=== PATIENT | male | born 1990 | race Caucasian/White ===

== ENCOUNTER → 2019-01-09 | Outpatient (REF) | payer OTHER | LOC: M SFHCLERA 12:10 | PROVIDERS: ATTEND Nurse Practitioner Family | DX: J02.9 Acute pharyngitis, unspecified (principal) ==

== ENCOUNTER 2019-12-11 18:17 | Inpatient (IN) | payer OTHER ==
[~2019-12-11] VITALS: Ht 182.9 cm; Wt 118.3 kg
[2019-12-11] MEDS ORDERED: ZOLO100T PO (18:56)
[2019-12-11] MEDS ORDERED: WELLTAB40 PO (18:56)
[2019-12-11] MEDS ORDERED: DOXE75CA2 PO (18:56)
[2019-12-11] MEDS ORDERED: PROP10TA56 PO (20:36)
[2019-12-11] MEDS ORDERED: FLOM0.4C39 PO (20:36)
[2019-12-12] MEDS ORDERED: ADDE20CA3 PO (01:03)
[2019-12-12] MEDS ORDERED: MOBI4TAB PO (01:03)
[2019-12-12] MEDS ORDERED: FLOM0.4C39 PO (01:03)
[2019-12-12] MEDS ORDERED: DOXE25CA PO (01:03)
[2019-12-12] MEDS ORDERED: ACETAMINOPHEN TAB 650MG DOSE (2X325MG) PO PRN (02:00)
[2019-12-12] MEDS ORDERED: MOM 30ML SUSPENSION UDC PO PRN (02:00)
[2019-12-12] MEDS ORDERED: MAALOX 30 ML SUSP *UDC PO PRN (02:00)
[2019-12-12 05:30] VITALS: BP 145/96
[2019-12-12] MEDS ORDERED: MELO7.5T35 PO (08:00)
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
--- NOTE | 2019-12-12 10:41 | HPEPDOC ---
General Date of Admission Dec 12, 2019 at 02:00 Date of Service: Dec 12, 2019 Chief Complaint The patient is a 29-year-old male admitted with a reason for visit of Unspecified Depressive D/O. Source: Patient Exam Limitations: No limitations Timing/Duration: Other (not applicable) Severity: Other (not applicable) Associated Symptoms: Other (not applicable) History of Present Illness 29 years old white male with past medical history of major depressive disorder has been admitted to inpatient mental health unit with suicidal ideations. Patient denies any medical complaints including chest pain, shortness of breath, nausea, vomiting, abdominal pain, syncope, etc. Home Medications Scheduled Bupropion HCl (Wellbutrin Xl) 300 Mg Tab.er.24h, 300 MG PO DAILY, (Reported) Doxepin HCl (Doxepin HCl) 25 Mg Capsule, 75 MG PO QHS, (Reported) Meloxicam (Meloxicam) 7.5 Mg Tablet, 7.5 MG PO DAILY for . , (Reported) Sertraline Hcl (Zoloft) 100 Mg Tablet, 100 MG PO DAILY, (Reported) Tamsulosin HCl (Flomax) 0.4 Mg Capsule, 0.4 MG PO QHS, (Reported) Scheduled PRN Propranolol HCl (Propranolol HCl) 10 Mg Tablet, 10 MG PO TID PRN for ANXIETY, (Reported) Allergies Coded Allergies: No Known Drug Allergies (Verified Allergy, Unknown, 12/11/19) Past Medical History Medical History Asthma Surgical History None Family History Significant Family History: Other (. Family history of alcoholism: Father) Social History * Smoker: current smoker Alcohol: other (history of alcohol abuse in the past) Drugs: other (, history of cocaine abuse in the past) A-FIB/CHADSVASC A-FIB History Current/History of A-Fib/PAF?: No Review of Systems Constitutional: Denies: Chills, Fever, Malaise, Night Sweats, Weakness, Fatigue, Weight Loss, Lethargy, Other Eyes: Denies: Pain, Vision change, Conjunctivae inflammation, Eyelid inflamma tion, Redness, Other ENT: Denies: Head Aches, Ear Pain, Dysphagia, Sinus Congestion, Post Nasal Drip, Sore Throat, Epistaxis, Other Symptoms Skin: Denies: Rash, Lesions, Breakdown Pulmonary: Denies: Dyspnea, Cough, Pleuritic Chest Pain, Other Symptoms Cardiovascular: Denies: Chest Pain, Palpitations, Orthopnea, Paroxysmal Noc. Dyspnea, Edema, Lt Headedness, Other Symptoms Gastrointestinal: Denies: Nausea, Vomiting, Abdominal Pain, Diarrhea, Constipation, Melena, Hematochezia, Other Symptoms Genitourinary: Denies: Dysuria, Frequency, Incontinence, Hematuria, Retention, Other Symptoms Hematologic: Denies: Bruising, Bleeding Excessively, Petecchia, Purpura, Enlarged Lymph Nodes, Other Hematologic Endocrine: Denies: Polydipsia, Polyphagia, Polyuria, Heat Intolerance, Cold Intolerance, Other Endocrine Sx Musculoskeletal: Denies: Neck Pain, Back Pain, Shoulder Pain, Arm Pain, Hand Pain, Leg Pain, Foot Pain, Joint Pain, Muscle Pain, Spasms, Other Symptoms Neurological: Denies: Weakness, Numbness, Incoordination, Change in speech, Confusion, Seizures, Other Symptoms Psych: Denies: Mood Normal, Anxiety, Depression, Memory Issues, Thoughts of Self Harm, Anger, Thoughts of Harming Other, Other Psych Physical Examination General Exam: Positive: Alert, Cooperative Eye Exam: Positive: PERRLA, Conjunctiva & lids normal ENT Exam: Positive: Atraumatic, Mucous membr. moist/pink Neck Exam: Positive: Supple Chest Exam: Positive: Wheezing (minimal occasional expiratory wheezing bilaterally) Heart Exam: Positive: Rate Normal, Normal S1, Normal S2 Abdomen Exam: Positive: Normal bowel sounds, Soft Extremity Exam: Positive: Normal pulses Skin Exam: Positive: Nl turgor and temperature Neuro Exam: Positive: Strength at 5/5 X4 ext Psych Exam: Positive: Mood NL, Oriented x 3 Vital Signs Vital Signs Date Time Temp Pulse Resp B/P (MAP) Pulse Ox O2 Delivery O2 Flow Rate FiO2 12/12/19 05:30 96.6 67 18 145/96 (112) 99 Room Air Problems (1) Suicidal ideation Status: Acute Problem Text: Patient admitted to inpatient mental health unit as with suicidal ideation Group and individual therapy as per psychiatry Meds as per psychiatry (2) Asthma Status: Chronic Problem Text: Will add Proventil HFA 2 puffs every 6 hours when necessary (3) Depression Status: Chronic Problem Text: Pharmacological intervention as per psychiatry Plan / VTE VTE Prophylaxis Ordered?: No VTE Exclusion Mechanical Proph: Low Risk for VTE VTE Exclusion Pharmacological: At Low Risk for VTE CONSUELO WONG MD Dec 12, 2019 10:41
[2019-12-12] MEDS ORDERED: ALBUTEROL 90 MCG/ACT 8GM HFA INHALER INH PRN (10:45)
[2019-12-12] MEDS ORDERED: PROPRANOLOL 10 MG TAB PO PRN (13:30)
[2019-12-12] MEDS: buPROPion **XL** TABLET 150MG (WELLBUTRIN XL) PO SCH (13:54)
[2019-12-12] MEDS: SERTRALINE 100 MG TAB PO SCH (13:54)
[2019-12-12 15:42] VITALS: BP 147/79
[2019-12-12 21:26] VITALS: BP 139/93
[2019-12-12] MEDS: TAMSULOSIN 0.4 MG CAP PO SCH (21:26)
[2019-12-12] MEDS: DOXEPIN 25 MG CAP PO SCH (21:26)
[2019-12-13 06:08] VITALS: BP 134/80
[2019-12-13] MEDS: buPROPion **XL** TABLET 150MG (WELLBUTRIN XL) PO SCH (08:43)
[2019-12-13] MEDS: SERTRALINE 100 MG TAB PO SCH (08:43)
[2019-12-13] MEDS: MELOXICAM (MOBIC) 7.5 MG TAB PO SCH (08:43)
[2019-12-13 11:11] LABS: BASO % 0.7 % (0.0-1.0); EOS # 0.4 10^3/uL (0.0-0.5); EOS % 7.2 % (0.0-3.0); HEMATOCRIT 45.6 % (42.0-52.0); HEMOGLOBIN 14.6 g/dl (13.5-17.5); LYMPH # 1.7 10^3/uL (1.5-5.0); MEAN CORPUSCULAR HEMOGLOBIN 27.6 pg (27.0-33.0); MEAN CORPUSCULAR VOLUME 86.2 fl (80.0-96.0); MONO # 0.5 10^3/uL (0.0-0.8); MONO % 9.9 % (0.0-5.0); NEUTROPHILS # 2.7 10^3/uL (1.5-8.5); NEUTROPHILS % 49.8 % (36.0-66.0); PLATELET COUNT, AUTOMATED 250 10^3/uL (150-450); RED BLOOD COUNT 5.29 10^6/uL (4.30-6.10); WHITE BLOOD COUNT 5.4 10^3/uL (4.0-10.0)
[2019-12-13 11:38] LABS: ALBUMIN 3.6 GM/DL (3.2-5.2); ALT/SGPT 38 U/L (12-78); BILIRUBIN,TOTAL 0.4 MG/DL (0.2-1.0); BLOOD UREA NITROGEN 17 MG/DL (7-18); CALCIUM LEVEL 9.2 MG/DL (8.5-10.1); CARBON DIOXIDE LEVEL 31 MEQ/L (21-32); CHLORIDE LEVEL 104 MEQ/L (98-107); CREATININE FOR GFR 1.22 MG/DL (0.70-1.30); GLOMERULAR FILTRATION RATE > 60.0 (>60); GLUCOSE, FASTING 103 MG/DL (70-100); MAGNESIUM LEVEL 2.2 MG/DL (1.8-2.4); POTASSIUM SERUM 4.1 MEQ/L (3.5-5.1); SODIUM LEVEL 141 MEQ/L (136-145); THYROID STIMULATING HORMONE 0.944 uIU/ML (0.358-3.740); TOTAL PROTEIN 6.6 GM/DL (6.4-8.2)
--- NOTE | 2019-12-13 11:48 | MHIPNPDOC ---
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 The patient reports that he became subsequently more depressed and started to have thoughts of self-harm. The patient reportedly had difficulty with drinking and subsequently reporting that he had had "homicidal thoughts" towards others. The patient reports difficulty with mood swings and difficulty focusing. Reports a history of feeling down for weeks at a time with anxious with erratic sleep. Interval History Narrative: The patient reports that he is making some improvements. He reports that he is not interested in staying over the long weekend as [facility] will be closed. Affective: The patient reports improved mood, less irritability. Psychotic: Denies any voices at this time. Anxiety: Improved socialization, reports better coping skills with poetry. Eating and sleeping behaviors: Within normal limits. Group Attendance: Frequent at times, although has difficulty with day groups. Medication Side effects: See ROS below Behavioral problems/significant events overnight: None reported. Staff Report: The patient is generally approachable and amenable, although does seem to be focused at times on his disability rating. Review Of Systems General: Denies fever or appetite changes Cardiovascular: Denies Chest pain or palpitations GI: Denies Nausea, vomiting, or bowel changes Respiratory: Denies shortness of breath or cough Neuro: Denies dizziness, tremors Derm: Denies any rashes or pruritus : Denies any dysuria or urinary problems MSK: Denies any muscle tightness or stiffness HEENT: Denies any vision changes or headaches Psychotherapy None on this visit. Vital Signs Reviewed. Mental Status Examination General: Well dressed with good hygiene Speech: Spontaneous and fluid Thought processes: Linear and logical MSK: Smooth and coordinated gait, no signs of tremors or involuntary orofacial movements Thought content: Future orientated Abstract reasoning, and computation: Intact Description of associations: Intact Description of abnormal or psychotic thoughts: Denies any suicidal or homicidal ideation. Denies any auditory or visual hallucinations. Does not appear to be responding to internal stimuli. Does not appear to be endorsing any bizarre or paranoid ideation. Judgment: fair Insight: fair Orientation: Alert and orientated 3 Cognition: Grossly normal Recent and remote memory: Intact Attention span and concentration: Intact Fund of knowledge: Adequate Mood: "okay" Affect: Euthymic with a full range Diagnoses Unspecified depressive disorder. Adjustment versus MDD. PTSD, chronic. Concern for malingering. Assessment and Plan Unspecified depressive disorder/PTSD: Continue home sertraline, Wellbutrin and propranolol. We will not continue ADHD medications as un-concerning for ADHD at this time.. Concern for malingering: Some concerns, although no overt concerns at this time pending discharge. Disposition Discharge tomorrow to [facility]. Time Spent 15 minutes [id number]. Wednesday Vital Signs Vital Signs Date Time Temp Pulse Resp B/P (MAP) Pulse Ox O2 Delivery O2 Flow Rate FiO2 12/13/19 06:08 98.2 73 16 134/80 (98) 12/12/19 05:30 99 Room Air Laboratory Data 24H Labs Laboratory Tests 2 12/13/19 10:15: Immature Granulocyte % (Auto) 0.4, Neutrophils (%) (Auto) 49.8, Lymphocytes (%) (Auto) 32.0, Monocytes (%) (Auto) 9.9H, Eosinophils (%) (Auto) 7.2H, Basophils (%) (Auto) 0.7, Neutrophils # (Auto) 2.7, Lymphocytes # (Auto) 1.7, Monocytes # (Auto) 0.5, Eosinophils # (Auto) 0.4, Basophils # (Auto) 0.0, Nucleated Red Blood Cells % (auto) 0.0, Anion Gap 6L, Glomerular Filtration Rate > 60.0, Calcium Level 9.2, Magnesium Level 2.2, Total Bilirubin 0.4, Aspartate Amino Transf (AST/SGOT) 14, Alanine Aminotransferase (ALT/SGPT) 38, Alkaline Phosphatase 85, Total Protein 6.6, Albumin 3.6, Albumin/Globulin Ratio 1.20, Thyroid Stimulating Hormone (TSH) 0.944 CBC/BMP Laboratory Tests 12/13/19 10:15 Current Medications Current Medications Medications (Trade) Dose Ordered Sig/[place] Route PRN Reason Start Time Stop Time Status Last Admin Dose Admin Acetaminophen (Tylenol Tab) 650 mg Q6HP PRN PO HEADACHE or DISCOMFORT 12/12/19 02:00 Al Hydrox/Mg Hydrox/Simethicone (Mylanta) 30 ml Q4HP PRN PO HEARTBURN/INDIGESTION 12/12/19 02:00 Albuterol Sulfate (Proventil, Ventolin Hfa) 2 puff Q6HP PRN INH SHORTNESS OF BREATH 12/12/19 10:45 Bupropion HCl (Wellbutrin Xl) 300 mg DAILY PO 12/12/19 09:00 12/13/19 08:43 Doxepin HCl (SINEquan) 75 mg QHS PO 12/12/19 21:00 12/12/19 21:26 Home Med (Med Rec Complete!) ASDIRECTED XX 12/12/19 01:15 12/12/19 01:05 DC Home Med (Med Rec Complete!) ASDIRECTED XX 12/12/19 08:00 12/12/19 08:04 DC Magnesium Hydroxide (Milk Of Magnesia) 30 ml DAILYPRN PRN PO CONSTIPATION 12/12/19 02:00 Meloxicam (Mobic) 7.5 mg DAILY PO 12/13/19 09:00 12/13/19 08:43 Propranolol HCl (Inderal) 10 mg TID PRN PO ANXIETY 12/12/19 13:30 12/12/19 21:26 Sertraline HCl (Zoloft) 100 mg DAILY PO 12/12/19 09:00 12/13/19 08:43 Tamsulosin HCl (Flomax) 0.4 mg QHS PO 12/12/19 21:00 12/12/19 21:26 Allergies Coded Allergies: No Known Drug Allergies (Verified Allergy, Unknown, 12/11/19) SOLIS COX DO Dec 13, 2019 11:48
[2019-12-13 17:19] VITALS: BP 135/83
[2019-12-13] MEDS: TAMSULOSIN 0.4 MG CAP PO SCH (20:50)
[2019-12-13] MEDS: DOXEPIN 25 MG CAP PO SCH (20:51)
[2019-12-14 06:01] VITALS: BP 138/70
--- NOTE | 2019-12-14 08:22 | MHDSPDOC ---
[facility] Discharge Summary Discharge Summary DATE OF ADMISSION: Dec 12, 2019 at 02:00 DATE OF DISCHARGE: 12/13/19 Discharge Robert Madison MRN: N/A Date of : N/A Date of Service: 12/14/2019 Diagnoses Unspecified depressive disorder. Adjustment versus MDD. PTSD, chronic. Concern for malingering. 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 The patient reports that he became subsequently more depressed and started to have thoughts of self-harm. The patient reportedly had difficulty with drinking and subsequently reporting that he had had "homicidal thoughts" towards others. The patient reports difficulty with mood swings and difficulty focusing. Reports a history of feeling down for weeks at a time with anxious with erratic sleep. Consultants Involved Hospitalist/PCP screening Treatment and Progress On The Unit The patient was admitted to the inpatient mental health unit, restarted on his home medications with the exception of Adderall as it could not be confirmed where and if it was prescribed. Concern for malingering had been present. The patient made progress on the unit and subsequently was converted to voluntary status shortly after arriving. Denied any suicidal or homicidal ideation. After several days, he reported that he wanted to be discharged for the long weekend as he reported that he did not want stay over the weekend due to [facility] being closed. The patient did well, attended groups at times and was more expressive on the unit. He had no major behavioral problems and otherwise was compliant. 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 Discharge Assessment 29-year-old man with a history of reported adjustment versus PTSD presents reportedly suicidal for yet unclear reasons. He was admitted and observed for several days. On the day of discharge, he denies any suicidal or homicidal ideation, has a normal mental status exam, was calm and cooperative with our discharge process and has a safe discharge plan as [place]. He declines any voluntary extension of his admission and thus not meeting involuntary criteria due to the above mentioned factors, will be discharged in good shila. Mental Status Examination General: Well dressed with good hygiene Speech: Spontaneous and fluid Thought processes: Linear and logical MSK: Smooth and coordinated gait, no signs of tremors or involuntary orofacial movements Thought content: Future orientated Abstract reasoning, and computation: Intact Description of associations: Intact Description of abnormal or psychotic thoughts: Denies any suicidal or homicidal ideation. Denies any auditory or visual hallucinations. Does not appear to be responding to internal stimuli. Does not appear to be endorsing any bizarre or paranoid ideation. Judgment: fair Insight: fair Orientation: Alert and orientated 3 Cognition: Grossly normal Recent and remote memory: Intact Attention span and concentration: Intact Fund of knowledge: Adequate Mood: "okay" Affect: Euthymic with a full range Follow Up The social work team worked during the predischarge meeting in order to evaluate for further issues of lethality address them fully before discharge. They worked on safety planning with the patient's family members in order to ensure that the patient will have a safe and effective discharge. Time Spent The amount of time spent in the coordination of care for this patient was approximately 40 minutes. Vital Signs/I&Os Vital Signs Date Time Temp Pulse Resp B/P (MAP) Pulse Ox O2 Delivery O2 Flow Rate FiO2 12/14/19 06:01 97.4 79 16 138/70 (92) 12/12/19 05:30 99 Room Air Laboratory Data Labs 24H Laboratory Tests 2 12/13/19 10:15: Immature Granulocyte % (Auto) 0.4, Neutrophils (%) (Auto) 49.8, Lymphocytes (%) (Auto) 32.0, Monocytes (%) (Auto) 9.9H, Eosinophils (%) (Auto) 7.2H, Basophils (%) (Auto) 0.7, Neutrophils # (Auto) 2.7, Lymphocytes # (Auto) 1.7, Monocytes # (Auto) 0.5, Eosinophils # (Auto) 0.4, Basophils # (Auto) 0.0, Nucleated Red Blood Cells % (auto) 0.0, Anion Gap 6L, Glomerular Filtration Rate > 60.0, Calcium Level 9.2, Magnesium Level 2.2, Total Bilirubin 0.4, Aspartate Amino Transf (AST/SGOT) 14, Alanine Aminotransferase (ALT/SGPT) 38, Alkaline Basim sphatase 85, Total Protein 6.6, Albumin 3.6, Albumin/Globulin Ratio 1.20, Thyroid Stimulating Hormone (TSH) 0.944 CBC/BMP Laboratory Tests 12/13/19 10:15 Medications Scheduled Bupropion HCl (Wellbutrin Xl) 300 Mg Tab.er.24h, 300 MG PO DAILY for mood for 7 Days, #7 Doxepin HCl (Doxepin HCl) 25 Mg Capsule, 75 MG PO QHS for sleep for 7 Days, #21 Meloxicam (Meloxicam) 7.5 Mg Tablet, 7.5 MG PO DAILY for . for 7 Days, #7 Sertraline Hcl (Zoloft) 100 Mg Tablet, 100 MG PO DAILY for mood for 7 Days, #7 Tamsulosin HCl (Flomax) 0.4 Mg Capsule, 0.4 MG PO QHS for bhp for 7 Days, #7 Varenicline Tartrate (Chantix) 1 Mg Tablet, 1 TAB PO BID for tobacco for 7 Days, #14 Scheduled PRN Propranolol HCl (Propranolol HCl) 10 Mg Tablet, 10 MG PO TID PRN for ANXIETY for 7 Days, #21 Allergies Coded Allergies: No Known Drug Allergies (Verified Allergy, Unknown, 12/11/19) SOLIS COX DO Dec 14, 2019 08:22
[2019-12-14] MEDS ORDERED: DOXE25CA PO (08:30)
[2019-12-14] MEDS ORDERED: FLOM0.4C39 PO (08:30)
[2019-12-14] MEDS ORDERED: ZOLO100T PO (08:30)
[2019-12-14] MEDS ORDERED: PROP10TA56 PO (08:30)
[2019-12-14] MEDS ORDERED: MELO7.5T35 PO (08:30)
[2019-12-14] MEDS: buPROPion **XL** TABLET 150MG (WELLBUTRIN XL) PO SCH (08:32)
[2019-12-14] MEDS: MELOXICAM (MOBIC) 7.5 MG TAB PO SCH (08:32)
[2019-12-14] MEDS: SERTRALINE 100 MG TAB PO SCH (08:32)
[2019-12-14] MEDS ORDERED: CHAN1PAK13 PO (10:02)
[2019-12-14] MEDS ORDERED: WELLTAB40 PO (10:02)
== END 2019-12-14 11:35 | disposition home or self-care (01) | DRG 881 ==
LOC: M ED 18:17 → M ED INP 12-12 02:00 → M PSY 12-12 04:15
PROVIDERS: ADMIT Psychiatry & Neurology Psychiatry; ATTEND Psychiatry & Neurology Addiction Medicine
DX: F32.9 Major depressive disorder, single episode, unspecified (principal); R45.851 Suicidal ideations; F43.10 Post-traumatic stress disorder, unspecified; Z76.5 Malingerer [conscious simulation]; F43.20 Adjustment disorder, unspecified; Z79.899 Other long term (current) drug therapy; F17.200 Nicotine dependence, unspecified, uncomplicated; J45.909 Unspecified asthma, uncomplicated

== ENCOUNTER 2020-01-05 09:12 | Inpatient (IN) | payer OTHER ==
[~2020-01-05] VITALS: Ht 182.9 cm; Wt 119.8 kg
[~2020-01-05 09:12] MED LIST: ADDE20CA3 PO; CHAN1PAK13 PO; DOXE25CA PO; DOXE75CA2 PO; FLOM0.4C39 PO; MELO7.5T35 PO; MOBI4TAB PO; PROP10TA56 PO; WELLTAB40 PO; ZOLO100T PO
[2020-01-05 10:12] LABS: HEMATOCRIT 40.5 % (42.0-52.0); HEMOGLOBIN 13.1 g/dl (13.5-17.5); MEAN CORPUSCULAR HEMOGLOBIN 28.1 pg (27.0-33.0); MEAN CORPUSCULAR HGB CONC 32.3 g/dl (32.0-36.5); MEAN CORPUSCULAR VOLUME 86.9 fl (80.0-96.0); PLATELET COUNT, AUTOMATED 243 10^3/uL (150-450); RED BLOOD COUNT 4.66 10^6/uL (4.30-6.10); WHITE BLOOD COUNT 5.5 10^3/uL (4.0-10.0)
[2020-01-05 10:37] LABS: AMPHETAMINES LEVEL URINE NEGATIVE (NEGATIVE); BARBITURATES URINE NEGATIVE (NEGATIVE); BENZODIAZEPINES URINE NEGATIVE (NEGATIVE); CANNABINOIDS URINE NEGATIVE (NEGATIVE); COCAINE METABOLITE URINE NEGATIVE (NEGATIVE); METHADONE URINE NEGATIVE (NEGATIVE); OPIATES URINE NEGATIVE (NEGATIVE); PHENCYCLIDINE URINE NEGATIVE (NEGATIVE)
[2020-01-05 10:46] LABS: ACETAMINOPHEN LEVEL < 2.0 UG/ML (10.0-30.0); ALBUMIN 3.5 GM/DL (3.2-5.2); ALT/SGPT 102 U/L (12-78); BILIRUBIN,DIRECT < 0.1 MG/DL (0.0-0.2); BILIRUBIN,TOTAL 0.2 MG/DL (0.2-1.0); BLOOD UREA NITROGEN 18 MG/DL (7-18); CARBON DIOXIDE LEVEL 28 MEQ/L (21-32); CHLORIDE LEVEL 108 MEQ/L (98-107); CREATININE FOR GFR 0.91 MG/DL (0.70-1.30); ETHYL ALCOHOL (ETHANOL) < 0.003 % (0.000-0.010); GLOMERULAR FILTRATION RATE > 60.0 (>60); GLUCOSE, FASTING 107 MG/DL (70-100); SALICYLATE LEVEL < 1.7 MG/DL (5.0-30.0); SODIUM LEVEL 141 MEQ/L (136-145); THYROID STIMULATING HORMONE 0.972 uIU/ML (0.358-3.740); TOTAL PROTEIN 6.5 GM/DL (6.4-8.2)
[2020-01-05] MEDS ORDERED: DOXE25CA PO (13:59)
[2020-01-05] MEDS ORDERED: MELO7.5T35 PO (13:59)
[2020-01-05] MEDS ORDERED: BUPR300T92 PO (13:59)
[2020-01-05] MEDS ORDERED: SERT-138 PO (13:59)
[2020-01-05] MEDS ORDERED: CHAN1PAK13 PO (13:59)
[2020-01-05] MEDS ORDERED: PROP10TA56 PO (13:59)
[2020-01-05] MEDS ORDERED: MELA3TAB49 PO (13:59)
[2020-01-05] MEDS ORDERED: FLOM0.4C39 PO (13:59)
[2020-01-05] MEDS ORDERED: traZODone 50 MG TAB PO PRN (14:30)
[2020-01-05] MEDS ORDERED: ACETAMINOPHEN TAB 650MG DOSE (2X325MG) PO PRN (14:30)
[2020-01-05] MEDS ORDERED: MOM 30ML SUSPENSION UDC PO PRN (14:30)
[2020-01-05] MEDS ORDERED: MAALOX 30 ML SUSP *UDC PO PRN (14:30)
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
[2020-01-05] MEDS: TAMSULOSIN 0.4 MG CAP PO SCH (21:39)
[2020-01-05] MEDS: DOXEPIN 25 MG CAP PO SCH (21:39)
[2020-01-05] MEDS: VARENICLINE 1 MG TABLET PO SCH (21:39)
[2020-01-06 05:50] VITALS: BP 104/63
[2020-01-06] MEDS: VARENICLINE 1 MG TABLET PO SCH ×2 (08:43→20:21)
[2020-01-06] MEDS: MELOXICAM (MOBIC) 7.5 MG TAB PO SCH (08:43)
[2020-01-06] MEDS: buPROPion **XL** TABLET 150MG (WELLBUTRIN XL) PO SCH (08:43)
[2020-01-06] MEDS: SERTRALINE 100 MG TAB PO SCH (08:43)
--- NOTE | 2020-01-06 12:33 | HPEPDOC ---
General Date of Admission Jan 05, 2020 at 14:29 Date of Service: Jan 06, 2020 Chief Complaint The patient is a 29-year-old male admitted with a reason for visit of PTSD. Source: Patient Exam Limitations: No limitations History of Present Illness 29 year old male PMHx asthma, R wrist fracture admitted to psych unit for suicidal ideations. Patient is awake and alert, denies fever/chills, headaches, n/v/d, abdominal pain, shortness of breath, urinary complaints. States has chronic pain in R wrist that he usually takes Mobic for. No other complaints noted. Home Medications Scheduled Bupropion HCl (Bupropion Xl) 300 Mg Tab.er.24h, 300 MG PO DAILY, (Reported) Doxepin HCl (Doxepin HCl) 25 Mg Capsule, 75 MG PO QHS, (Reported) Melatonin (Melatonin) 3 Mg Tab.rapdis, 3 MG PO QHS, (Reported) Meloxicam (Meloxicam) 7.5 Mg Tablet, 7.5 MG PO DAILY, (Reported) Sertraline HCl (Sertraline HCl) 100 Mg Tablet, 100 MG PO DAILY, (Reported) Tamsulosin HCl (Flomax) 0.4 Mg Capsule, 0.4 MG PO QPM, (Reported) Varenicline Tartrate (Chantix) 1 Mg Tablet, 1 MG PO BID, (Reported) Scheduled PRN Propranolol HCl (Propranolol HCl) 10 Mg Tablet, 10 MG PO TID PRN for ANXIETY, (Reported) Allergies Coded Allergies: No Known Drug Allergies (Verified Allergy, Unknown, 12/11/19) Past Medical History Medical History asthma, R wrist fracture, PTSD Surgical History as above Family History Significant Family History: No pertinent family hx Social History * Smoker: current smoker, cigar Alcohol: Denies Drugs: denies A-FIB/CHADSVASC A-FIB History Current/History of A-Fib/PAF?: No Current PO Anticoag Therapy: No Review of Systems Constitutional: Denies: Chills, Fever, Night Sweats Eyes: Denies: Pain, Vision change ENT: Denies: Head Aches, Ear Pain, Dysphagia Skin: Denies: Rash, Lesions, Breakdown Pulmonary: Denies: Dyspnea, Cough Cardiovascular: Denies: Chest Pain, Palpitations, Orthopnea, Paroxysmal Noc. Dyspnea, Lt Headedness Gastrointestinal: Denies: Nausea, Vomiting, Abdominal Pain, Diarrhea Genitourinary: Denies: Dysuria, Frequency, Incontinence, Retention Hematologic: Denies: Bruising, Bleeding Excessively Musculoskeletal: Reports: Other Symptoms (R wrist pain); Denies: Neck Pain, Back Pain, Joint Pain, Muscle Pain, Spasms Neurological: Denies: Weakness, Numbness, Change in speech, Confusion Psych: Reports: Mood Normal; Denies: Depression, Memory Issues Physical Examination General Exam: Positive: Alert, No Acute Distress Eye Exam: Positive: PERRLA, Conjunctiva & lids normal, EOMI; Negative: Sclera icteric ENT Exam: Positive: Atraumatic, Mucous membr. moist/pink, Pharynx Normal Neck Exam: Positive: Supple; Negative: JVD, thyromegaly Chest Exam: Positive: Clear to auscultation, Normal air movement, Wheezing (L chest ) Heart Exam: Positive: Rate Normal, Regular Rhythm, Normal S1, Normal S2; Negative: Murmurs, Rubs Telemetry: Positive: No significant arrhythmia Abdomen Exam: Positive: Normal bowel sounds, Soft; Negative: Tenderness, Hepatospenomegaly Extremity Exam: Positive: Normal pulses, Other (R wrist full motion with no limitations); Negative: Clubbing, Cyanosis, Edema Skin Exam: Positive: Nl turgor and temperature; Negative: Breakdown, Lesion Neuro Exam: Positive: Normal Gait, Normal Speech, Cranial Nerves 3-12 NL, Reflexes 2+ Psych Exam: Positive: Mental status NL, Mood NL, Oriented x 3 Vital Signs Vital Signs Date Time Temp Pulse Resp B/P (MAP) Pulse Ox O2 Delivery O2 Flow Rate FiO2 01/06/20 10:43 Room Air 01/06/20 05:50 97.2 65 16 104/63 (77) 01/05/20 16:36 100 Assessment/Plan 1. asthma - would advise patient to continue albuterol inhaler PRN. 2. hx R wrist fracture with chronic pain - continue ibuprofen prn. 3. PTSD/suicidal ideations - management as per psych. Plan / VTE VTE Prophylaxis Ordered?: No VANDANA WHYTE MD Jan 06, 2020 12:33
[2020-01-06] MEDS ORDERED: IBUPROFEN 400 MG TAB PO PRN (12:45)
[2020-01-06] MEDS ORDERED: ALBUTEROL 90 MCG/ACT 8GM HFA INHALER INH PRN (12:45)
[2020-01-06] MEDS: PROPRANOLOL 10 MG TAB PO PRN (14:41)
[2020-01-06 16:08] VITALS: BP 132/83
[2020-01-06] MEDS: DOXEPIN 25 MG CAP PO SCH (20:21)
[2020-01-06] MEDS: TAMSULOSIN 0.4 MG CAP PO SCH (20:21)
[2020-01-07 06:22] VITALS: BP 124/74
--- NOTE | 2020-01-07 08:44 | MHIPN ---
DATE OF SERVICE: 01/06/2020 The patient refused to see me today.
[2020-01-07] MEDS: SERTRALINE 100 MG TAB PO SCH (09:18)
[2020-01-07] MEDS: MELOXICAM (MOBIC) 7.5 MG TAB PO SCH (09:18)
[2020-01-07] MEDS: buPROPion **XL** TABLET 150MG (WELLBUTRIN XL) PO SCH (09:18)
[2020-01-07] MEDS: VARENICLINE 1 MG TABLET PO SCH ×2 (09:18→20:27)
[2020-01-07 16:19] VITALS: BP 131/71
[2020-01-07] MEDS: DOXEPIN 25 MG CAP PO SCH (20:26)
[2020-01-07] MEDS: TAMSULOSIN 0.4 MG CAP PO SCH (20:26)
[2020-01-08 06:25] VITALS: BP 112/63
[2020-01-08] MEDS: VARENICLINE 1 MG TABLET PO SCH ×2 (09:13→20:26)
[2020-01-08] MEDS: PROPRANOLOL 10 MG TAB PO PRN (09:13)
[2020-01-08] MEDS: buPROPion **XL** TABLET 150MG (WELLBUTRIN XL) PO SCH (09:14)
[2020-01-08] MEDS: SERTRALINE 100 MG TAB PO SCH (09:14)
[2020-01-08] MEDS: MELOXICAM (MOBIC) 7.5 MG TAB PO SCH (09:14)
--- NOTE | 2020-01-08 10:58 | MHIPNPDOC ---
[facility] Progress Note Progress Note Inpatient Progress Note Robert Madison MRN: N/A Date of : N/A Date of Service: 01/08/2020 History of Present Illness The patient, a 29-year-old man with a history of reported PTSD who recently was on our unit, presents again after reportedly stating that he was suicidal and had engaged in some suicidal gesture early in the week. He reportedly told his chain of command and was brought in for evaluation. He was admitted down of an abundance of caution. When the patient was met with, he reported that his depression had gotten somewhat worse and he had become more impulsive, he noted that he was more unable to control himself, although his ability to socialize had improved since he left. He reported no major changes in his life or social situations since he had left. There had been previous concerns on his last admission and he had been malingering in order to increase his med board rating. Interval History The patient was met with today. He had been notably non-active during the weekend, refusing to meet with the on-call provider. The [facility] has concerns about patient's presentation, noting that they had concerns about him malingering. The patient had notably told some of the staff that he was attempting to get his med board rating higher. When met with the patient reported that he was no longer suicidal and that his depression has been resolving without any significant medication changes. He reported no other symptoms and other than a mild fever, he reported no other complaints at this time. Review Of Systems General: As above Cardiovascular: Denies Chest pain or palpations GI: Denies Nausea, vomiting, or bowel changes Respiratory: Denies shortness of breath or cough Neuro: Denies dizziness, tremors Derm: Denies any rashes or pruritus : Denies any dysuria or urinary problems MSK: Denies any muscle tightness or stiffness HEENT: Denies any vision changes or headaches Psychotherapy None on this visit. Vital Signs Reviewed. Mental Status Examination General: Well dressed with good hygiene Speech: Spontaneous and fluid Thought processes: Linear and logical MSK: Smooth and coordinated gait, no signs of tremors or involuntary orofacial movements Thought content: Mild hopelessness Abstract reasoning, and computation: Intact Description of associations: Intact Description of abnormal or psychotic thoughts: Denies any suicidal or homicidal ideations. Denies auditory or visual hallucinations. Judgment: Currently limited Insight: Currently limited Orientation: Alert and orientated 3 Cognition: Grossly normal Recent and remote memory: Intact Attention span and concentration: Intact Fund of knowledge: Adequate Mood: "okay" Affect: Euthymic. Diagnoses Unspecified depressive disorder. Adjustment versus MDD. PTSD, chronic. Concern for malingering. Tobacco use disorder, moderate. Assessment and Plan Unspecified depressive disorder/PTSD: Resume sertraline, Wellbutrin as below. Tobacco use disorder: Continue home Chantix. Disposition Patient will be evaluated further, however, plan for discharge on Wednesday after chain of command meeting, as patient is no longer suicidal. Time Spent 15 minutes. Wednesday Vital Signs Vital Signs Date Time Temp Pulse Resp B/P (MAP) Pulse Ox O2 Delivery O2 Flow Rate FiO2 01/08/20 09:13 113 129/76 01/08/20 08:46 Room Air 01/08/20 06:25 97.3 18 01/05/20 16:36 100 Current Medications Current Medications Medications (Trade) Dose Ordered Sig/Holland Route PRN Reason Start Time Stop Time Status Last Admin Dose Admin Acetaminophen (Tylenol Tab) 650 mg Q6HP PRN PO HEADACHE or DISCOMFORT 01/05/20 14:30 Al Hydrox/Mg Hydrox/Simethicone (Mylanta) 30 ml Q4HP PRN PO HEARTBURN/INDIGESTION 01/05/20 14:30 Albuterol Sulfate (Proventil, Ventolin Hfa) 2 puff Q6HP PRN INH SHORTNESS OF BREATH 01/06/20 12:45 Bupropion HCl (Wellbutrin Xl) 300 mg DAILY PO 01/06/20 09:00 01/08/20 09:14 Doxepin HCl (SINEquan) 75 mg QHS PO 01/05/20 21:00 01/07/20 20:26 Home Med (Med Rec Complete!) ASDIRECTED XX 01/05/20 14:15 01/05/20 14:05 DC Ibuprofen (Advil) 400 mg Q6HP PRN PO PAIN 01/06/20 12:45 Magnesium Hydroxide (Milk Of Magnesia) 30 ml DAILYPRN PRN PO CONSTIPATION 01/05/20 14:30 Meloxicam (Mobic) 7.5 mg DAILY PO 01/06/20 09:00 01/08/20 09:14 Propranolol HCl (Inderal) 10 mg TIDP PRN PO ANXIETY 01/05/20 15:30 01/08/20 09:13 Sertraline HCl (Zoloft) 100 mg DAILY PO 01/06/20 09:00 01/08/20 09:14 Tamsulosin HCl (Flomax) 0.4 mg QPM PO 01/05/20 21:00 01/07/20 20:26 Trazodone HCl (Desyrel) 50 mg QHSP PRN PO INSOMNIA 01/05/20 14:30 Cancel Varenicline (Chantix) 1 mg BID PO 01/05/20 21:00 01/08/20 09:13 Allergies Coded Allergies: No Known Drug Allergies (Verified Allergy, Unknown, 12/11/19) SOLIS COX DO Jan 08, 2020 10:58
[2020-01-08 15:38] VITALS: BP 138/73
[2020-01-08] MEDS ORDERED: ACETAMINOPHEN 325 MG TAB PO PRN (16:00)
--- NOTE | 2020-01-08 18:45 | MHIPN ---
DATE: 01/07/2020 The patient refused to see me again today.
[2020-01-08] MEDS: TAMSULOSIN 0.4 MG CAP PO SCH (20:25)
[2020-01-08] MEDS: DOXEPIN 25 MG CAP PO SCH (20:26)
[2020-01-09 05:54] VITALS: BP 115/82
[2020-01-09] MEDS: VARENICLINE 1 MG TABLET PO SCH ×2 (09:28→21:33)
[2020-01-09] MEDS: MELOXICAM (MOBIC) 7.5 MG TAB PO SCH (09:28)
[2020-01-09] MEDS: buPROPion **XL** TABLET 150MG (WELLBUTRIN XL) PO SCH (09:28)
[2020-01-09] MEDS: SERTRALINE 100 MG TAB PO SCH (09:28)
--- NOTE | 2020-01-09 10:46 | MHIPNPDOC ---
[facility] Progress Note Progress Note Inpatient Progress Note Robert Madison MRN: N/A Date of : N/A Date of Service: 01/09/2020 History of Present Illness The patient, a 29-year-old man with a history of reported PTSD who recently was on our unit, presents again after reportedly stating that he was suicidal and had engaged in some suicidal gesture early in the week. He reportedly told his chain of command and was brought in for evaluation. He was admitted down of an abundance of caution. When the patient was met with, he reported that his depression had gotten somewhat worse and he had become more impulsive, he noted that he was more unable to control himself, although his ability to socialize had improved since he left. He reported no major changes in his life or social situations since he had left. There had been previous concerns on his last admission and he had been malingering in order to increase his med board rating. Interval History The patient has met with today. He was being triaged for psychological testing as it appears a important aspect of gauge as malingering has come up multiple times during this admission and he has had multiple admissions. The patient was met with where he reports his depression was doing better and his anxiety has been resolving. He has had no suicidal ideation today. He has not attended all groups, but has attended former groups and he previously has in the past. He is notably more engaged than he was prior. Review Of Systems General: As above Cardiovascular: Denies Chest pain or palpations GI: Denies Nausea, vomiting, or bowel changes Respiratory: Denies shortness of breath or cough Neuro: Denies dizziness, tremors Derm: Denies any rashes or pruritus : Denies any dysuria or urinary problems MSK: Denies any muscle tightness or stiffness HEENT: Denies any vision changes or headaches Psychotherapy None on this visit. Vital Signs Reviewed. Mental Status Examination General: Well dressed with good hygiene Speech: Spontaneous and fluid Thought processes: Linear and logical MSK: Smooth and coordinated gait, no signs of tremors or involuntary orofacial movements Thought content: Mild hopelessness Abstract reasoning, and computation: Intact Description of associations: Intact Description of abnormal or psychotic thoughts: Denies any suicidal or homicidal ideations. Denies auditory or visual hallucinations. Judgment: Currently limited Insight: Currently limited Orientation: Alert and orientated 3 Cognition: Grossly normal Recent and remote memory: Intact Attention span and concentration: Intact Fund of knowledge: Adequate Mood: "okay" Affect: Euthymic. Diagnoses Unspecified depressive disorder. Adjustment versus MDD. PTSD, chronic. Malingering. Tobacco use disorder, moderate. Assessment and Plan Unspecified depressive disorder/PTSD: Continue sertraline, Wellbutrin as below. Tobacco use disorder: Continue home Chantix. Malingering: Psychometric testing reveals patient malingering primarily, questionable symptoms at this time. Disposition Discharge tomorrow as no longer suicidal. Time Spent 15 minutes. Wednesday Vital Signs Vital Signs Date Time Temp Pulse Resp B/P (MAP) Pulse Ox O2 Delivery O2 Flow Rate FiO2 01/09/20 05:54 97.5 83 14 115/82 (93) 01/08/20 08:46 Room Air 01/05/20 16:36 100 Current Medications Current Medications Medications (Trade) Dose Ordered Sig/Hol[place] Route PRN Reason Start Time Stop Time Status Last Admin Dose Admin Acetaminophen (Tylenol Tab) 325 mg Q6HP PRN PO HEADACHE 01/08/20 16:00 Acetaminophen (Tylenol Tab) 650 mg Q6HP PRN PO HEADACHE or DISCOMFORT 01/05/20 14:30 Al Hydrox/Mg Hydrox/Simethicone (Mylanta) 30 ml Q4HP PRN PO HEARTBURN/INDIGESTION 01/05/20 14:30 Albuterol Sulfate (Proventil, Ventolin Hfa) 2 puff Q6HP PRN INH SHORTNESS OF BREATH 01/06/20 12:45 Bupropion HCl (Wellbutrin Xl) 300 mg DAILY PO 01/06/20 09:00 01/09/20 09:28 Doxepin HCl (SINEquan) 75 mg QHS PO 01/05/20 21:00 01/08/20 20:26 Home Med (Med Rec Complete!) ASDIRECTED XX 01/05/20 14:15 01/05/20 14:05 DC Ibuprofen (Advil) 400 mg Q6HP PRN PO PAIN 01/06/20 12:45 Magnesium Hydroxide (Milk Of Magnesia) 30 ml DAILYPRN PRN PO CONSTIPATION 01/05/20 14:30 Meloxicam (Mobic) 7.5 mg DAILY PO 01/06/20 09:00 01/09/20 09:28 Propranolol HCl (Inderal) 10 mg TIDP PRN PO ANXIETY 01/05/20 15:30 01/08/20 09:13 Sertraline HCl (Zoloft) 100 mg DAILY PO 01/06/20 09:00 01/09/20 09:28 Tamsulosin HCl (Flomax) 0.4 mg QPM PO 01/05/20 21:00 01/08/20 20:25 Trazodone HCl (Desyrel) 50 mg QHSP PRN PO INSOMNIA 01/05/20 14:30 Cancel Varenicline (Chantix) 1 mg BID PO 01/05/20 21:00 01/09/20 09:28 Allergies Coded Allergies: No Known Drug Allergies (Verified Allergy, Unknown, 12/11/19) SOLIS COX DO Jan 09, 2020 10:46
[2020-01-09 15:44] VITALS: BP 174/99
[2020-01-09] MEDS: PROPRANOLOL 10 MG TAB PO PRN (15:44)
[2020-01-09 17:58] VITALS: BP 174/99
[2020-01-09] MEDS: TAMSULOSIN 0.4 MG CAP PO SCH (21:33)
[2020-01-09] MEDS: DOXEPIN 25 MG CAP PO SCH (21:34)
[2020-01-10 07:16] VITALS: BP 139/69
[2020-01-10] MEDS: MELOXICAM (MOBIC) 7.5 MG TAB PO SCH (08:54)
[2020-01-10] MEDS: buPROPion **XL** TABLET 150MG (WELLBUTRIN XL) PO SCH (08:54)
[2020-01-10] MEDS: SERTRALINE 100 MG TAB PO SCH (08:54)
[2020-01-10] MEDS: VARENICLINE 1 MG TABLET PO SCH (08:54)
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
== END 2020-01-10 11:20 | disposition home or self-care (01) | DRG 883 ==
LOC: M ED 09:12 → M ED INP 14:29 → M PSY 16:47
PROVIDERS: ADMIT Psychiatry & Neurology Addiction Medicine; ATTEND Psychiatry & Neurology Addiction Medicine
DX: F60.2 Antisocial personality disorder (principal); R45.851 Suicidal ideations; Z76.5 Malingerer [conscious simulation]; F43.9 Reaction to severe stress, unspecified; Z79.899 Other long term (current) drug therapy; J45.909 Unspecified asthma, uncomplicated; F43.10 Post-traumatic stress disorder, unspecified